=== PATIENT | male | born 2000 | race Caucasian/White ===

== ENCOUNTER 2021-09-10 16:06 | Emergency (ER) | payer OTHER ==
[2021-09-10] MEDS ORDERED: ONDANSETRON 4 MG/2 ML (SDV) Z0FRAN IVP STA ×2 (16:14→17:16)
[2021-09-10] MEDS ORDERED: fentaNYL INJ 100 MCG/2 ML AMP ONE (16:14)
[2021-09-10] MEDS ORDERED: ONDANSETRON 4 MG/2 ML (SDV) Z0FRAN ONE (16:14)
[2021-09-10] MEDS ORDERED: fentaNYL INJ 100 MCG/2 ML AMP IVP STA ×2 (16:14→16:22)
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
[2021-09-10] MEDS ORDERED: morphine INJ 10 MG/ML 1ML (SYR OR VIAL) IVP STA (16:38)
[2021-09-10] MEDS ORDERED: BACITRACIN OINTMENT 28 GM TUBE ONE ×2 (17:00→17:18)
[2021-09-10] MEDS ORDERED: OXYC1TAB11 PO (17:14)
[2021-09-10] MEDS ORDERED: IBUP-1780 PO (17:15)
[2021-09-10 17:57] VITALS: BP 128/76
== END 2021-09-10 18:00 | disposition home or self-care (01) ==
LOC: ER FS 16:10
DX: T22.292A Burn of second degree of multiple sites of left shoulder and upper limb, except wrist and hand, initial encounter (principal); T23.202A Burn of second degree of left hand, unspecified site, initial encounter; T23.232A Burn of second degree of multiple left fingers (nail), not including thumb, initial encounter; X03.0XXA Exposure to flames in controlled fire, not in building or structure, initial encounter